=== PATIENT | female | born 1950 | race Caucasian/White ===

== ENCOUNTER 2016-07-19 05:34 | Day surgery (SDC) | payer BC ==
[~2016-07-19] VITALS: Ht 162.6 cm; Wt 92.9 kg
[~2016-07-19 05:34] MED LIST: Ascorbic Acid,Ester- PO; Calcium Carbonate,Ca PO; Ecotrin PO; Feosol PO; Levothroid,Synthroid PO; Lexapro PO; NEXIUM40 MG PO; Theragran PO; Tylenol PM PO; Vicodin,Norco 5/325 PO; celeBREX PO
[2016-07-19 05:56] VITALS: BP 143/67
[2016-07-19] MEDS ORDERED: NORCO 5/3251 TABLET PO (08:58)
[2016-07-19 09:21] VITALS: BP 154/82
[2016-07-19 10:19] VITALS: BP 134/74
== END 2016-07-19 10:32 | disposition home or self-care (01) ==
LOC: SDC 05:34
DX: E03.9 Hypothyroidism, unspecified (principal); M19.90 Unspecified osteoarthritis, unspecified site; K21.9 Gastro-esophageal reflux disease without esophagitis; F32.9 Major depressive disorder, single episode, unspecified
CPT/HCPCS: C1781; J0690; J2250; J2405; J3010; S0020